=== PATIENT | male | born 1980 | race African-American/Black ===

== ENCOUNTER 2021-07-24 16:40 | Inpatient (IN) | payer OTHER ==
[2021-07-24 18:42] VITALS: BMI 23.8
[2021-07-24] MEDS ORDERED: LORazepam 1 MG TABLET PO PRN (21:07)
[2021-07-24] MEDS ORDERED: ONDANSETRON *ODT* 4 MG TABLET SL PRN (21:07)
[2021-07-24] MEDS ORDERED: ACETAMINOPHEN 325 MG TABLET (FP) PO PRN (21:07)
[2021-07-24] MEDS ORDERED: MAGNESIUM CITRATE 300 ML BOTTLE PO PRN (21:07)
[2021-07-24] MEDS ORDERED: traZODone HCL 50 MG TABLET (FP) PO PRN (21:07)
[2021-07-24] MEDS ORDERED: MAGNESIUM HYDROX 2400MG/30ML ORAL SUSPENSION 30 ML CUP PO PRN (21:07)
[2021-07-24] MEDS ORDERED: MAG HYDROX/AL HYDROX/SIMETH 30 ML UNIT-DOSE CUP PO PRN (21:07)
[2021-07-24] MEDS ORDERED: BISMUTH SUBSALICYLATE 524 MG/30 ML PO PRN (21:07)
[2021-07-24] MEDS ORDERED: NICOTINE POLACRILEX 2 MG GUM BUC PRN (21:07)
[2021-07-24] MEDS: ALBUTEROL SO4 HFA INHALER IH PRN (21:48)
[2021-07-24] MEDS: DOCUSATE SODIUM 100 MG CAPSULE (FP) PO SCH (21:50)
[2021-07-24] MEDS: THIAMINE HCL 100 MG TABLET (FP) PO SCH (21:50)
[2021-07-24] MEDS: GABAPENTIN 100 MG CAPSULE PO SCH (21:50)
[2021-07-24] MEDS: METHOCARBAMOL 500 MG TABLET PO PRN (21:50)
[2021-07-24] MEDS: LORazepam 2 MG TABLET PO SCH (22:01)
[2021-07-24] MEDS: NICOTINE 10 MG CARTRIDGE (INHALER) IH PRN (22:36)
[2021-07-25] MEDS: GABAPENTIN 100 MG CAPSULE PO SCH ×3 (05:17→22:15)
[2021-07-25] MEDS: IBUPROFEN 400 MG TABLET (FP) PO PRN ×2 (05:17→22:16)
[2021-07-25] MEDS: DOCUSATE SODIUM 100 MG CAPSULE (FP) PO SCH ×3 (05:17→22:16)
[2021-07-25] MEDS: LORazepam 2 MG TABLET PO SCH ×4 (05:17→22:15)
[2021-07-25] MEDS: ALBUTEROL SO4 HFA INHALER IH PRN ×2 (05:22→22:19)
[2021-07-25] MEDS: NICOTINE 10 MG CARTRIDGE (INHALER) IH PRN (09:05)
[2021-07-25] MEDS: hydrOXYzine PAMOATE 25 MG CAPSULE (FP) PO PRN (10:39)
[2021-07-25] MEDS: amLODIPine BESYLATE 5 MG TABLET (FP) PO SCH (10:39)
[2021-07-25] MEDS: METHOCARBAMOL 500 MG TABLET PO PRN ×2 (10:39→17:40)
[2021-07-25] MEDS: PRENATAL VITAMINS W/ FOLIC ACID TABLET (FP) PO SCH (10:39)
[2021-07-25] MEDS: FAMOTIDINE 20 MG TABLET PO SCH (10:39)
[2021-07-25] MEDS ORDERED: MENTHOL/PHENOL 1 EACH UD MM ONE (11:13)
[2021-07-25] MEDS: guaiFENesin 600 MG TABLET.ER (FP) PO SCH (14:30)
[2021-07-25] MEDS: cloNIDine HCL 0.1 MG TABLET PO PRN (14:31)
[2021-07-25 14:52] LABS: HEMATOCRIT 35.1 % (35.4-49); HEMOGLOBIN 12.2 GM/dL (11.7-16.9); MCH 28.5 pg (25.7-33.7); MCHC 34.8 g/dl (32.0-35.9); PLATELET COUNT 321 10^3/uL (134-434); RBC 4.28 M/mm3 (4.00-5.60); RDW 16.6 % (11.9-15.9); WHITE BLOOD COUNT 8.9 K/mm3 (4.0-10.0)
[2021-07-25 15:01] LABS: ALBUMIN 3.8 g/dl (3.4-5.0)
[2021-07-25 15:04] LABS: CREATININE 0.9 mg/dL (0.55-1.3)
[2021-07-25 15:06] LABS: BILIRUBIN,TOTAL 0.2 mg/dL (0.2-1); TOT PROT 7.3 g/dl (6.4-8.2)
[2021-07-25] MEDS: MENTHOL/PHENOL 1 EACH UD MM PRN (17:41)
[2021-07-25] MEDS ORDERED: traZODone HCL 50 MG TABLET (FP) ONE (21:17)
[2021-07-25] MEDS: THIAMINE HCL 100 MG TABLET (FP) PO SCH (22:15)
[2021-07-25] MEDS: traZODone HCL 100 MG TABLET (FP) PO SCH (22:15)
[2021-07-26] MEDS: LORazepam 1 MG TABLET PO SCH ×4 (05:32→22:02)
[2021-07-26] MEDS: DOCUSATE SODIUM 100 MG CAPSULE (FP) PO SCH ×3 (05:32→22:02)
[2021-07-26] MEDS: GABAPENTIN 100 MG CAPSULE PO SCH ×3 (05:32→22:02)
[2021-07-26] MEDS: METHOCARBAMOL 500 MG TABLET PO PRN ×3 (05:34→22:02)
[2021-07-26] MEDS: ACETAMINOPHEN 325 MG TABLET (FP) PO PRN ×2 (05:35→13:14)
[2021-07-26] MEDS: cloNIDine HCL 0.1 MG TABLET PO PRN (05:36)
[2021-07-26] MEDS: ALBUTEROL SO4 HFA INHALER IH PRN (05:37)
[2021-07-26] MEDS: PRENATAL VITAMINS W/ FOLIC ACID TABLET (FP) PO SCH (10:36)
[2021-07-26] MEDS: FAMOTIDINE 20 MG TABLET PO SCH (10:36)
[2021-07-26] MEDS: guaiFENesin 600 MG TABLET.ER (FP) PO SCH (10:36)
[2021-07-26] MEDS: amLODIPine BESYLATE 5 MG TABLET (FP) PO SCH (10:36)
[2021-07-26] MEDS: IBUPROFEN 400 MG TABLET (FP) PO PRN (17:07)
[2021-07-26] MEDS: THIAMINE HCL 100 MG TABLET (FP) PO SCH (22:02)
[2021-07-26] MEDS: MELATONIN 5 MG TABLETS PO PRN (22:02)
[2021-07-26] MEDS: traZODone HCL 100 MG TABLET (FP) PO SCH (22:02)
[2021-07-27] MEDS ORDERED: LORazepam 0.5 MG TABLET PO PRN
[2021-07-27] MEDS: ALBUTEROL SO4 HFA INHALER IH PRN ×3 (05:27→22:26)
[2021-07-27] MEDS: METHOCARBAMOL 500 MG TABLET PO PRN ×3 (05:27→22:22)
[2021-07-27] MEDS: IBUPROFEN 400 MG TABLET (FP) PO PRN ×2 (05:29→22:23)
[2021-07-27] MEDS: GABAPENTIN 100 MG CAPSULE PO SCH ×3 (05:29→22:22)
[2021-07-27] MEDS: DOCUSATE SODIUM 100 MG CAPSULE (FP) PO SCH ×3 (05:29→22:22)
[2021-07-27] MEDS: LORazepam 0.5 MG TABLET PO SCH ×4 (05:30→22:23)
[2021-07-27] MEDS: MENTHOL/PHENOL 1 EACH UD MM PRN (05:30)
[2021-07-27] MEDS: FAMOTIDINE 20 MG TABLET PO SCH (10:14)
[2021-07-27] MEDS: PRENATAL VITAMINS W/ FOLIC ACID TABLET (FP) PO SCH (10:14)
[2021-07-27] MEDS: guaiFENesin 600 MG TABLET.ER (FP) PO SCH (10:14)
[2021-07-27] MEDS: hydrOXYzine PAMOATE 25 MG CAPSULE (FP) PO PRN ×3 (10:14→22:22)
[2021-07-27] MEDS: amLODIPine BESYLATE 5 MG TABLET (FP) PO SCH (10:14)
[2021-07-27] MEDS: NICOTINE 10 MG CARTRIDGE (INHALER) IH PRN ×2 (12:26→19:10)
[2021-07-27] MEDS: MELATONIN 5 MG TABLETS PO PRN (22:22)
[2021-07-27] MEDS: traZODone HCL 100 MG TABLET (FP) PO SCH (22:23)
[2021-07-27] MEDS: THIAMINE HCL 100 MG TABLET (FP) PO SCH (22:23)
[2021-07-28] MEDS ORDERED: LORazepam 0.5 MG TABLET PO ONE (05:00)
[2021-07-28] MEDS: DOCUSATE SODIUM 100 MG CAPSULE (FP) PO SCH (05:50)
[2021-07-28] MEDS: GABAPENTIN 100 MG CAPSULE PO SCH (05:50)
[2021-07-28] MEDS: METHOCARBAMOL 500 MG TABLET PO PRN (05:52)
[2021-07-28] MEDS: ALBUTEROL SO4 HFA INHALER IH PRN (05:52)
[2021-07-28 07:13] VITALS: TEMP 98.2
[2021-07-28 09:26] VITALS: BP 106/70; PULSE 85
[2021-07-28] MEDS: guaiFENesin 600 MG TABLET.ER (FP) PO SCH (09:43)
[2021-07-28] MEDS: amLODIPine BESYLATE 5 MG TABLET (FP) PO SCH (09:43)
[2021-07-28] MEDS: PRENATAL VITAMINS W/ FOLIC ACID TABLET (FP) PO SCH (09:43)
[2021-07-28] MEDS: FAMOTIDINE 20 MG TABLET PO SCH (09:43)
[2021-07-28] MEDS: hydrOXYzine PAMOATE 25 MG CAPSULE (FP) PO PRN (09:44)
== END 2021-07-28 09:46 | disposition home or self-care (01) | DRG 774 ==
LOC: YASAS 16:40 → Y6N 20:07
PROVIDERS: ADMIT Allergy & Immunology; ATTEND Allergy & Immunology
PROC: HZ2ZZZZ Detoxification Services for Substance Abuse Treatment (ICD-10-PCS; principal; 2021-07-24)
DX: F10.230 Alcohol dependence with withdrawal, uncomplicated (principal); F14.20 Cocaine dependence, uncomplicated; F12.20 Cannabis dependence, uncomplicated; F17.210 Nicotine dependence, cigarettes, uncomplicated; F10.282 Alcohol dependence with alcohol-induced sleep disorder; F10.280 Alcohol dependence with alcohol-induced anxiety disorder; F41.8 Other specified anxiety disorders; F32.A Depression, unspecified; I10 Essential (primary) hypertension; J45.20 Mild intermittent asthma, uncomplicated; K21.9 Gastro-esophageal reflux disease without esophagitis; M54.50 Low back pain, unspecified; G89.29 Other chronic pain
CPT/HCPCS: 36415; 80053; 82962; 85027; 86780; C9803; J0735; U0003; U0005